=== PATIENT | male | born 1960 | race Caucasian/White ===

== ENCOUNTER → 2017-04-20 06:46 | Outpatient (CLI) | payer OTHER, SELFPAY ==
[2017-04-07 09:48] VITALS: BP 117/75; BMI 32.2
--- NOTE | 2017-04-20 06:48 | CT_ITS ---
STUDY: CT MAXILLOFACIAL SINUSES REASON FOR EXAM: Male, 56 years old. Chronic sinusitis. Deviated nasal septum. RADIATION DOSAGE (If Supplied By Facility): CTDIvol = ( 33.06 ) mGy, DLP = ( 825.58 ) mGycm TECHNIQUE: The patient was scanned in a multi detector CT scanner. High resolution axial imaging was performed without the administration of intravenous contrast material. Sagittal and coronal images were reconstructed. Individualized dose optimization techniques were used for this CT. COMPARISON: Comparison is made with prior study dated March 23, 2014. FINDINGS: FRONTAL SINUSES: Normal aeration, without mucosal inflammatory disease. ETHMOIDAL SINUSES: Partial opacification of the ethmoid sinuses bilaterally. MAXILLARY SINUSES: Partial opacification of the right maxillary sinus. Focal nodular mucosal thickening of the left maxillary sinus. SPHENOIDAL SINUSES: Normal aeration, without mucosal inflammatory disease. There is obstruction of the ostiomeatal complexes bilaterally due to mucosal hypertrophy. Normal bilateral middle turbinates. Normal bilateral inferior turbinates. There is a right sided nasal septal deviation with a right sided nasal septal spur. There is patency of the bilateral nasal airways. The visualized osseous structures are normal. The visualized bilateral orbital contents are normal. CT/Sinus/Facial Bone IMPRESSION: Sinusitis involving the maxillary sinuses and ethmoid sinuses bilaterally as described. Nasal septal deviation towards the right side of the midline. Electronically Signed: Sachin Mello MD at 12:03 EST Tel [phone], Service support ,
== END ==
PROVIDERS: Family Provider Student in an Organized Health Care Education/Training Program; PCP Student in an Organized Health Care Education/Training Program; Visit Provider Otolaryngology
DX: J32.0 Chronic maxillary sinusitis (principal)
CPT/HCPCS: 70486

== ENCOUNTER 2017-05-13 06:40 | Day surgery (SDC) | payer OTHER, SELFPAY ==
[2017-05-13] VITALS (8 sets, daily range): BP systolic 117–132; BP diastolic 73–87; PULSE 60–74; RESP 16–18; TEMP 36.1–37.4; O2SAT 92–96; BMI 33.0
--- NOTE | 2017-05-13 | SEP_PTH ---
PATIENT: ANJELICA PEREZ LOC: [facility] U#:[id number] AGE/SX: 56/M ROOM: RE05/13/[address]: Dr. Christian Powers MD : 1960 BED: DIS: 05/13/2017 SPEC #: [id number] RECD: 05/13/17 14:33 STATUS: COLLIN JEROME #: [id number] ANDREAS: 05/13/17 00:[address]: Christian Powers DEPT: SURGICAL PATHOLOGY RECD BY: John Shelby ENTERED: 05/13/17 14:34 SP TYPE: SEPTUM OTHR DR: Dr. Jovanny Abernathy, Tissues: A - Nasal septum, NOS B - Ethmoid sinus, NOS C - Ethmoid sinus, NOS Procedures: Decalcification bone/plaque Surgery Specimen Level III Surgery Specimen Level IV HEADER OPERATION: Septoplasty, ethmoidectomy, max antrostomy, PRE-OP DIAGNOSIS: Septal deviation with right-sided spur posteriorly; obstruction of maxillary sinus ostia and diffuse ethmoid disease TISSUE SUBMITTED: A ? Nasal septum, B ? Left sinus contents, C ? Right sinus contents MICROSCOPIC DIAGNOSIS A. Nasal septum: Fragments of cartilage and bone, clinically septal deviation. B. Left sinus contents: Fragments of respiratory mucosa with mild chronic inflammation and bone. C. Right sinus contents: Fragments of respiratory mucosa with mild chronic inflammation including turbinate and bone. SJ:danis 05/18/17 MICROSCOPIC DESCRIPTION Slides are reviewed. GROSS DESCRIPTION A - Received in fixative is one container labeled with the patient's name and designated nasal septum. The specimen consists of multiple irregular fragments of pink-red bone and cartilage that in aggregate measure 5 x 3 x 0.2 cm. Supply Chain Coordinator portions are submitted in one cassette after decalcification. B - Received in fixative is one container labeled with the patient's name and designated left sinus contents. The specimen consists of multiple irregular fragments of red-cohn soft tissue that in aggregate measure 3 x 2.5 x 0.2 cm. The specimen is totally submitted in one cassette. C - Received in fixative is one container labeled with the patient's name and designated right sinus contents. The specimen consists of two fragments of pink-cohn glistening mucosa with attached bone resembling turbinates and multiple minute fragments of cohn tissue that in aggregate measure 3 x 2 x 0.1 cm resembling sinus contents. Supply Chain Coordinator portions are submitted in one cassette after decalcification. / AM:danis 05/13/17 TC:3 CPT: 33198 x2, 48036 x2, 25771
--- NOTE | 2017-05-13 07:02 | EKG12_ITS ---
Test Reason : PREOP Blood Pressure : / mmHG Vent. Rate : 064 BPM Atrial Rate : 064 BPM P-R Int : 144 ms QRS Dur : 080 ms QT Int : 388 ms P-R-T Axes : 004 006 008 degrees QTc Int : 400 ms Normal sinus rhythm Normal ECG When compared with ECG of 25-OCT-2013 08:25, No significant change was found Confirmed by ROME CHACON, RODERICK ([id number]), department editor EUNICE VIDALES ([id number]) on 05/16/2017 3:44:26 PM Referred By: Christian Powers Confirmed By:RODERICK PETER MD
[2017-05-13 07:43] LABS: Anion Gap 7 (5-15); BUN 16 mg/dL (7-18); BUN/Creat Ratio 13.7 RATIO (10-20); Calcium,Total 8.4 mg/dL (8.5-10.1); Chloride 105 mmol/L (98-107); Creatinine, Serum 1.17 mg/dL (0.70-1.30); EST Glomerular Filtration Rate 69 mL/min (>60); Est Glom Filt Rate - Afr Amer 83 mL/min (>60); Glucose 101 mg/dL (74-106); Potassium 4.2 mmol/L (3.5-5.1); Sodium Level 140 mmol/L (136-145)
[2017-05-13] MEDS: Oxymetazoline 0.05% 1 SPRAY SPRAY.BTL 15 SPRAY (08:45)
[2017-05-13] MEDS: Lidocaine 4% 50 ML Bottle (08:45)
[2017-05-13] MEDS: Bacitracin 500 UNITS/GM PACKET (10:29)
--- NOTE | 2017-05-13 10:45 | PCM.DC ---
- Discharge Diagnoses Current Active Problems: chronic sinusitis, deviated nasal septum You will use the following diet at home:: Regular Discharge Activity: Return to Normal Activity, May not drive while taking narcotic pain medications. Call your doctor if your incision/area has: Continuous Slow Oozing, Sudden Increased Bleeding Call your doctor if you observe: Fever of 101 or Higher Allergies/Adverse Reactions: Allergies morphine Adverse Reaction (Verified 04/29/17 13:56) Other Medications to take at Discharge albuterol sulfate HFA 90 mcg/actuation aerosol inhaler 2 puff INHALATION PRN PRN g 04/01/17 fluticasone 100 mcg-vilanterol 25 mcg/dose powder for inhalation 1 inh INHALATION DAILY #60 ea 05/05/17 Primary Care Physician: Jovanny Abernathy DO [Primary Care Provider] - Please Follow Up With: Christian Powers MD When: 5 days
--- NOTE | 2017-05-13 10:50 | PCM.OPRPT ---
Problem List (1) Chronic ethmoidal sinusitis Status: Chronic (2) Chronic sinusitis of both maxillary sinuses Status: Chronic (3) Chronic sphenoidal sinusitis Status: Chronic (4) Nasal septal deviation Status: Chronic Report of Operation Date of Procedure: 05/13/17 Pre-Operative Diagnosis: Nasal septal deviation, chronic sinusitis Post-Operative Diagnosis: same Surgery/Procedure Performed:: Septoplasty, bilateral endoscopic maxillary antrostomies, total ethmoidectomies, sphenoidotomies Description of Surgical Findings:: Mayank is a 56-year-old male who presents for evaluation of chronic nasal obstruction and expectoration of large mucous globs. Examination showed significant deviation of nasal septum and CT scan confirmed a suspected chronic sinusitis. The above procedure was offered in hopes of alleviation of these complaints and he is eager to proceed. The risks, alternatives, potential benefits, and complications were discussed at length and any questions answered to the patient and/or caregiver's satisfaction. Witnessed informed consent was obtained in the office, and the patient and/or caregiver was agreeable to proceed. Procedure went as follows: The patient was identified in the preoperative holding and brought to the operating room was placed under general anesthesia and intubated. When appropriate anesthesia obtained the navigational headgear was placed in accordance with the manufactures directions prior to proceeding. Pledgets soaked in a 50-50 mixture of oxymetazoline and 4% topical lidocaine were placed decongest the nasal mucosa. The nasal septum was then injected beginning on the left side with 1% lidocaine with 100,000 epinephrine for a total of 7 cc. The pledgets were then removed and the left nasal cavity examined there is noted to be marketed nasal septal deviation to the right with a large inferior bony spur on the left. Using a 15 blade scalpel a hemitransfixion incision was then made in the left side and using the caudal elevator a subperichondrial periosteal flap and elevated. The septum was then transected at the bony cartilaginous junction and similar flap raised on the contralateral side. Using a Karen forceps the septum was then sharply transected superiorly and the deviated portions removed with a Sabine forceps. Inferiorly the septal spur was removed with a chisel allowing for midline placement of the nasal septum. The hemitransfixion incision was then closed with interrupted 4-0 chromic gut suture followed by a 4 oh plain quilting suture to reapproximate the mucosal flaps. This completed the septoplasty portion of the procedure. Beginning on the left side using a 0? endoscope the nasal cavity examined. There is noted to be significant obstruction of the middle turbinate which was enlarged and involved with the randi bullosa. This was then injected with 1% lidocaine with 100,000 epinephrine for 2 cc total similar injection was then carried on the contralateral side. Again on the left side the randi bullosa was then entered and the medial aspect removed. This allowed examination of the maxillary sinus ostia which is then probed with a double ball seeker. The uncinate process process was then outfractured with a J curette and transected with a backbiting forceps. This was then removed with the microdebrider creating a wide maxillary antrostomy. The ethmoid bulla was then entered and total ethmoidectomy was then carried out. There is noted to be polypoid obstruction of the sphenoid sinus ostia and given this this was then entered and widened to prevent postoperative obstruction of the sphenoid sinus. Pledgets were then placed soaked in oxymetazoline for hemostasis and attention turned to the contralateral side. Similar procedure and findings were then carried out again with a maxillary antrostomy total ethmoidectomies and sphenoidotomy. The right maxillary sinus was completely filled with thick inspissated mucus which was suctioned clear with an olive-tipped suction. The middle turbinates were noted to be significantly flail and thinned with scar obstructing the frontonasal recesses. Given this these were then removed which alleviated the obstruction at this site. FloSeal hemostatic agent was then applied for hemostasis after irrigating the nasal passages with saline solution. Jasso splints were placed after coating with bacitracin ointment and secured at the columella with a single 3-0 Prolene suture. G-tube was placed to decompress the stomach and the patient returned to anesthesia where he was revived and extubated without complication having tolerated the procedure well. Type of Anesthesia:: General Anesthesiologist: Lars Starkey Specimen's removed: septal and sinus contents Drains: none Estimated Blood Loss (mL): 150 mL Fluids Replaced: 1200 mL Grafts/Implants Used: Jasso splints - Complications none - Admit VTE Documentation VTE Present on Admission: No VTE Mechan Device Prophylaxis: SCD's VTE Pharm Prophylaxis ordered?: No
[2017-05-13] MEDS: Ibuprofen 400 MG Tablet PO (12:39)
== END 2017-05-13 14:20 | disposition home or self-care (01) ==
LOC: SDC 06:41 → AC 06:44
PROVIDERS: Family Provider Student in an Organized Health Care Education/Training Program; PCP Student in an Organized Health Care Education/Training Program; Visit Provider Otolaryngology
PROC: (CPT 30520; principal; 2017-05-13 08:05)
DX: J34.2 Deviated nasal septum (principal); J32.2 Chronic ethmoidal sinusitis; J32.0 Chronic maxillary sinusitis; J32.3 Chronic sphenoidal sinusitis; J45.909 Unspecified asthma, uncomplicated
CPT/HCPCS: 30520; 31256; 31287; 36415; 80048; 88304; 88305; 88311; 93005; J3010; J7120; J2405; J3490

== ENCOUNTER → 2017-11-23 12:24 | Outpatient (CLI) | payer OTHER, SELFPAY ==
[2017-11-26 12:07] LABS: Alternaria tenuis <0.10 kU/L (Class 0); Ash, White <0.10 kU/L (Class 0); Aspergillus fumigatus <0.10 kU/L (Class 0); Bermuda Grass <0.10 kU/L (Class 0); Birch <0.10 kU/L (Class 0); Black Walnut <0.10 kU/L (Class 0); Cat Hair / Dander,Stand <0.10 kU/L (Class 0); Cedar, Mountain <0.10 kU/L (Class 0); Cladosporium herbarum <0.10 kU/L (Class 0); Cockroach, American <0.10 kU/L (Class 0); Cottonwood <0.10 kU/L (Class 0); D farinae Mite 0.15 kU/L (Class 0/I); D pteronyssinus 0.14 kU/L (Class 0/I); Dog Epithelia <0.10 kU/L (Class 0); Elm, American White <0.10 kU/L (Class 0); Immunoglobulin A 126 mg/dL (90-386); Immunoglobulin E 4 IU/mL (0-100); Immunoglobulin G 1100 mg/dL (700-1600); Immunoglobulin M 60 mg/dL (20-172); Maple/Box Elder <0.10 kU/L (Class 0); Mulberry, White <0.10 kU/L (Class 0); Oak, White <0.10 kU/L (Class 0); Pecan <0.10 kU/L (Class 0); Penicillium Notatum <0.10 kU/L (Class 0); Pigweed, Rough <0.10 kU/L (Class 0); Ragweed, Short/Common <0.10 kU/L (Class 0); Russian Thistle <0.10 kU/L (Class 0); Sheep Sorrel <0.10 kU/L (Class 0); Sycamore, American <0.10 kU/L (Class 0); Timothy Grass <0.10 kU/L (Class 0)
[2017-11-28 10:37] LABS: Immunoglobulin E 5 IU/mL (0-100)
[2017-11-28 10:38] LABS: Mouse Urine <0.10 kU/L (Class 0)
== END ==
PROVIDERS: Family Provider Student in an Organized Health Care Education/Training Program; PCP Student in an Organized Health Care Education/Training Program; Visit Provider Allergy & Immunology
DX: J30.89 Other allergic rhinitis (principal); J32.4 Chronic pansinusitis
CPT/HCPCS: 36415; 82784; 82785; 86003

== ENCOUNTER → 2018-01-10 10:32 | Outpatient (CLI) | payer OTHER, SELFPAY ==
--- NOTE | 2018-01-10 10:39 | STEWCON_ITS ---
Reason For Study: Dyspnea on Exertion Stress Results Protocol: Carlos Protocol Maximum Predicted HR: 164 bpm Target HR: 139 bpm % Maximum Predicted HR: 92 % Heart Stage Duration Rate BP Comment (mm:ss) (bpm) No Chest Pain; No Dyspnea; Diluted Definity 5 ML Baseline 74 122/84Given Carlos Protocol Stage I 3:00 125 136/80No Chest Pain; Mild Dyspnea Carlos Protocol Stage II 3:00 151 150/78No Chest Pain; Moderate to Severe Dyspnea Recovery 92 126/78No Chest Pain; No Dyspnea Stress Duration: 6:00 mm:ss Maximum Stress HR: 151 bpm METS: 7 Baseline Echocardiogram Findings The estimated ejection fraction is 65 %. Stress Echo Wall motion Data Resting WM Intermediate WM Stress WM Resting Wall Motion Wall Motion Stress No regional wall motion No regional wall motion abnormalities noted. abnormalities noted. EKG Data Normal intervals are noted. The patient exercised according to the regular Carlos protocol for a total duration of 7:00. The maximum heart rate attained was 151 beats per minute. This was 92% of maximum predicted heart rate. The patient exercised into stage 3 of the Carlos protocol. During stress, there were no ST or T wave changes noted to suggest ischemia. No clinical angina was noted. No arrhythmias noted. Interpretation Summary The study was technically difficult. Contrast injection was performed. The estimated ejection fraction is 65 %. Normal, adequate, treadmill echocardiogram. Negative for ischemia by EKG and echocardiographic anterior. No anginal symptoms noted. No arrhythmias noted. Appropriate blood pressure response to exercise. Below average exercise capacity for age. Test terminated due to dyspnea. Decreased sensitivity due to poor echo windows requiring Definity enhancing agent. Severe dyspnea may be an anginal equivalent. Recommend clinical correlation. Final LVEF of 65%. No complications. Ordering Physician: Katy Barker M.D. Referring Physician: Major Lazo M.D. Performed By: Yaneth Farrell RDCS
== END ==
PROVIDERS: Family Provider Student in an Organized Health Care Education/Training Program; PCP Student in an Organized Health Care Education/Training Program; Referring Provider Allergy & Immunology; Visit Provider Allergy & Immunology
DX: R06.09 Other forms of dyspnea (principal)
CPT/HCPCS: 93017; 93350; Q9957; A4216; C8928

== ENCOUNTER → 2018-11-16 07:15 | Outpatient (CLI) | payer OTHER, SELFPAY ==
[2018-05-16 07:44] VITALS: BMI 33.0
[2018-11-16 07:43] LABS: Absolute Lymphocyte Count 1.49 X10^3/uL (0.83-4.51); Absolute Neutrophil Count 4.1 X10^3/uL (2.0-7.7); Basophil# 0.06 X10^3/uL; Basophil% 0.9 % (0-1); Eosinophil# 0.16 X10^3/uL; Eosinophils% 2.5 % (0-5); Hematocrit 45.8 % (40-54); Hemoglobin 14.9 g/dL (13.0-16.5); Lymphocyte # 1.49 X10^3/ul (4.0); Lymphocyte % 23.4 % (19-41); Mean Corp Hgb Conc 32.5 g/dL (32-36); Mean Corpuscular Volume 92.3 fL (80-94); Mean Platelet Vol. 9.3 fl (6.2-12.0); Monocyte# 0.57 X10^3/uL; Monocyte% 8.9 % (0-10); NRBC Flagged by Analyzer 0 % (0-5); Neutrophil # 4.06 X10^3/uL (2.7-7.7); Neutrophil % 63.7 % (47-70); Platelet Count 246 K/mm3 (150-450); RBC Distribution Width CV 12.6 % (11.6-14.6); RBC Distribution Width SD 42.8 fl (35.1-43.9); Red Blood Count 4.96 M/mm3 (4.6-6.2); White Blood Count 6.4 K/mm3 (4.4-11.0)
[2018-11-16 08:12] LABS: ALB/GLOB Ratio 1.1 RATIO (0.9-2.4); AST(SGOT) 28 U/L (15-37); Alanine Aminotransfer ALT/SGPT 33 U/L (16-61); Albumin, Serum 3.7 g/dL (3.2-5.0); Alkaline Phosphatase 47 U/L (45-117); Anion Gap 5 (5-15); BUN 19 mg/dL (7-18); BUN/Creat Ratio 16.2 RATIO (10-20); Calcium,Total 8.3 mg/dL (8.5-10.1); Chloride 109 mmol/L (98-107); Cholesterol 144 mg/dL (200); Creatinine, Serum 1.17 mg/dL (0.70-1.30); EST Glomerular Filtration Rate 68 mL/min (>60); Est Glom Filt Rate - Afr Amer 83 mL/min (>60); Globulin 3.3 g/dL (2.2-4.2); Glucose 98 mg/dL (74-106); High Density Lipoprotein 44 mg/dL; Potassium 4.3 mmol/L (3.5-5.1); Sodium Level 143 mmol/L (136-145); Thyroid Stim Hormone (TSH) 2.11 uIU/mL (0.358-3.74); Triglycerides 112 mg/dL; Very Low Density Lipoprotein 22 mg/dL (5-40)
[2018-11-16 17:29] LABS: PSA,Total - Annual Screen 1.04 ng/mL (0.00-4.00)
== END ==
PROVIDERS: Family Provider Nurse Practitioner Primary Care; PCP Nurse Practitioner Primary Care; Referring Provider Nurse Practitioner Primary Care; Visit Provider Nurse Practitioner Primary Care
DX: Z12.5 Encounter for screening for malignant neoplasm of prostate (principal); R53.83 Other fatigue; Z13.220 Encounter for screening for lipoid disorders
CPT/HCPCS: 36415; 80053; 80061; 84153; 84443; 85025; G0103

== ENCOUNTER → 2019-08-08 | Outpatient (CLI) | payer OTHER, SELFPAY ==
[2019-08-08 16:18] VITALS: BMI 33.0
== END | disposition home or self-care (01) ==
LOC: LABSPEC 17:07
PROVIDERS: PCP Student in an Organized Health Care Education/Training Program; Referring Provider Surgery; Visit Provider Surgery
DX: R22.31 Localized swelling, mass and lump, right upper limb (principal)

== ENCOUNTER → 2019-08-09 | Outpatient (CLI) | payer OTHER, SELFPAY ==
--- NOTE | 2019-08-08 | LES_PTH ---
PATIENT: ANJELICA PEREZ LOC: [facility] U#:[id number] AGE/SX: 58/M ROOM: RE08/09/[address]: Dr. Luke Mahoney MD : 1960 BED: DIS: 08/09/2019 SPEC #: [id number] RECD: 08/08/19 16:46 STATUS: COLLIN JEROME #: [id number] ANDREAS: 08/08/19 00:[address]: Luke Mahoney DEPT: SURGICAL PATHOLOGY RECD BY: John Shelby ENTERED: 08/09/19 09:38 SP TYPE: Lesion OTHR DR: Dr. Jovanny Abernathy, DO Tissues: Skin of arm Procedures: Surgery Specimen Level III HEADER OPERATION: Excision of subcutaneous mass of right forearm PRE-OP DIAGNOSIS: Subcutaneous mass of right forearm TISSUE SUBMITTED: Subcutaneous mass of right forearm MICROSCOPIC DIAGNOSIS Soft tissue mass of right forearm, excision: Mature adipose tissue consistent with angiolipoma. AM:danis 08/10/19 MICROSCOPIC DESCRIPTION Slides are reviewed. GROSS DESCRIPTION Received in fixative is one container labeled with the patient's name and designated right forearm mass. The specimen consists of a piece of yellow adipose tissue measuring 3.5 x 2.5 x 0.7 cm. Sections reveal yellow adipose cut surfaces without area of hemorrhage, necrosis or cystic degeneration. Products Mechanical Design Engineer sections are submitted in two cassettes. / SJ:danis 08/09/19 TC:1 CPT: 91945
[2019-08-08 16:18] VITALS: BMI 33.0
== END | disposition home or self-care (01) ==
PROVIDERS: PCP Student in an Organized Health Care Education/Training Program; Visit Provider Surgery
DX: R22.31 Localized swelling, mass and lump, right upper limb (principal)
CPT/HCPCS: 88304; 88305

== ENCOUNTER 2020-02-19 16:28 | Observation (INO) | payer OTHER, SELFPAY ==
[2019-08-08 16:18] VITALS: BMI 33.0
[2020-02-19 16:29] VITALS: BP 125/84; PULSE 75; RESP 18; TEMP 36.6; O2SAT 98; BMI 30.9
--- NOTE | 2020-02-19 16:48 | NURSING ---
LEFT MESSAGE ON DR CANALES'S PHONE. BOOKSTORE MANAGER FOR DR ROBERT
--- NOTE | 2020-02-19 17:06 | ED.VISSUMM ---
- ER Visit Summary Date of Service: 02/19/20 Chief Complaint: Left leg and foot swelling History of Present Illness: The patient is a 59 M comes in today with left leg and foot swelling. He has some mild symptoms on the right. He had shoulder surgery on January 07. 2 weeks later he developed coronavirus. He then had superimposed pneumonia after that. He currently is denying any chest pain but feels very mildly short of breath. He has a history of superficial thrombophlebitis. He had an outpatient DVT ultrasound today which shows right and left posterior tibial and gastrocnemius veins. He was sent here for further evaluation. Physical Examination: Vital signs reviewed. HEENT exam unremarkable. Heart is regular rate and rhythm without murmurs. Lungs are clear to auscultation. Abdomen is soft and nontender. Extremities reveal plus edema to the bilateral lower extremities, slightly worse on the left down into the foot. Skin exam normal. Neurologic exam normal. Test Results: CBC and basic are normal. CT of the chest shows bilateral pulmonary emboli in all the lobes. Radiologist did remark that certain emboli are encroaching into the main pulmonary artery Emergency Department Course and Treatment: Due to the clot burden the patient will given a dose of subcutaneous Lovenox. Patient will be admitted to the hospital for further evaluation. Treatment Plan: [] Disposition: Admit Impression: Bilateral pulmonary emboli, DVT This note was generated with JumpPost dictation software. It may contain incorrect words, spelling, and punctuation that were not noted in review of the chart prior to signing ED Disposition - Plan for ED Patient: Referrals: Jovanny Abernathy DO [Primary Care Provider] -
[2020-02-19 17:19] LABS: Absolute Lymphocyte Count 1.93 X10^3/uL (0.83-4.51); Absolute Neutrophil Count 6.1 X10^3/uL (2.0-7.7); Basophil# 0.05 X10^3/uL; Basophil% 0.5 % (0-1); Eosinophil# 0.21 X10^3/uL; Eosinophils% 2.3 % (0-5); Hematocrit 44.1 % (40-54); Hemoglobin 14.2 g/dL (13.0-16.5); Lymphocyte # 1.93 X10^3/ul (4.0); Lymphocyte % 20.8 % (19-41); Mean Corp Hgb Conc 32.2 g/dL (32-36); Mean Corpuscular Volume 90.2 fL (80-94); Mean Platelet Vol. 9.7 fl (6.2-12.0); Monocyte# 0.89 X10^3/uL; Monocyte% 9.6 % (0-10); NRBC Flagged by Analyzer 0 % (0-5); Neutrophil # 6.12 X10^3/uL (2.7-7.7); Neutrophil % 65.9 % (47-70); Platelet Count 328 K/mm3 (150-450); RBC Distribution Width CV 12.6 % (11.6-14.6); RBC Distribution Width SD 41.9 fl (35.1-43.9); Red Blood Count 4.89 M/mm3 (4.6-6.2); White Blood Count 9.3 K/mm3 (4.4-11.0)
[2020-02-19 17:30] LABS: Anion Gap 4 (5-15); BUN 17 mg/dL (7-18); BUN/Creat Ratio 16.3 RATIO (10-20); Chloride 107 mmol/L (98-107); Creatinine, Serum 1.04 mg/dL (0.70-1.30); EST Glomerular Filtration Rate 78 mL/min (>60); Est Glom Filt Rate - Afr Amer 94 mL/min (>60); Glucose 96 mg/dL (74-106); Potassium 4.4 mmol/L (3.5-5.1); Sodium Level 141 mmol/L (136-145)
--- NOTE | 2020-02-19 17:40 | CT_ITS ---
STUDY: CTA CHEST REASON FOR EXAM: Male, 59 years old. SOB. +COVID AND PNEUMONIA RADIATION DOSAGE (If Supplied By Facility): CTDIvol = ( 14.45 ) mGy, DLP = ( 494.72 ) mGycm TECHNIQUE: The examination was performed with the intravenous administration of IV 100mL Isovue-370. Post-processing of the angiographic images was performed, with multiplanar reformation and 3D reconstruction. Individualized dose optimization techniques were used for this CT. COMPARISON: CT chest dated 12/22/16. FINDINGS: There are bilateral segmental and subsegmental pulmonary emboli in all lobes of both lungs which is more pronounced in the lower lobes bilaterally. The pulmonary artery is normal in caliber. There is no evidence of right heart strain. There is no evidence of thoracic aortic aneurysm or dissection. The heart and pericardium are within normal limits. There is no thoracic lymphadenopathy. There is atelectasis noted in the lung bases, left greater than right. There are no pulmonary infiltrates or pleural effusions. The central airways are patent. There is no pneumothorax. Images through the upper abdomen demonstrate no significant abnormality. There are no destructive osseous lesions. CT/CTA Chest W/WO Contrast IMPRESSION: Bilateral segmental and subsegmental pulmonary emboli throughout all lobes of both lungs. This is more pronounced in the lower lobes bilaterally. No thoracic aortic aneurysm or dissection. Bibasilar atelectasis, left greater than right. No pulmonary infiltrates or pleural effusions. N.B. : The above information has been verbally conveyed by Kaz Peirre to Kamran Gauthier MD, on 02/19/2020 18:02:59 (ET). Electronically Signed: Kaz Pierre, at 18:05 EST Tel , Service support ,
--- NOTE | 2020-02-19 18:22 | NURSING ---
PCU WHITE BILATERAL PULMONARY EMBOLI
[2020-02-19 18:30] VITALS: BP 122/81; PULSE 67; RESP 16; TEMP 36.9; O2SAT 98
[2020-02-19] MEDS: Enoxaparin 100 MG/ML Syringe SC (18:32)
--- NOTE | 2020-02-19 18:52 | HP.PCM_ITS ---
Problem List (1) DVT (deep venous thrombosis) Status: Acute (2) Pulmonary emboli Status: Acute History of Present Illness Date of Admission: 02/19/20 Chief Complaint: left ankle swelling The patient is a 59 year old M with pmhx of recent covid 19 who presented to the ER with LLE ankle swelling. The patient underwent a shoulder surgery january 07 and had covid following this. He has since recovered. About 4 days ago he developed left ankle swelling. It has progressively worsened. He has some associated pain. He has mild right calf pain. He denies chest pain, tightness, heaviness, SOB, racing, lightheadedness, dizziness, nausea, fever, chills. He has an occasional productive cough. He states he takes no meds and is otherwise healthy. [] Past Medical History Past Medical History (Chronic Problems): Chronic Problems (Last Reviewed 08/08/19 @ 16:25 by Georgie Delarosa) Environmental allergies (Chronic) Nasal septal deviation (Chronic) Chronic ethmoidal sinusitis (Chronic) Chronic sphenoidal sinusitis (Chronic) Chronic sinusitis of both maxillary sinuses (Chronic) Post-nasal drip (Chronic) History of asbestos exposure (Chronic) Shortness of breath (Chronic) Asthma, moderate persistent (Chronic) Medical History: Medical History (Last Reviewed 08/08/19 @ 16:25 by Georgie Delarosa) Subcutaneous mass (Acute) R22.9 History of asbestos exposure (Chronic) Z77.090 Shortness of breath (Chronic) R06.02 Asthma, moderate persistent (Chronic) J45.40 Allergies morphine Adverse Reaction (Verified 02/19/20 16:32) migraine Home Medications: Ambulatory Orders Medication Instructions Recorded Acetaminophen [Tylenol Extra 500 mg PO QHS 02/19/20 Strength] Surgical History: Surgical History (Last Reviewed 08/08/19 @ 16:25 by Georgie Delarosa) Sinus reconstruction Dr. Powers did 3 or 4 different procedures 05/2017 Lives: With Family Smoking Status: Never smoker Tobacco Use: Non-smoker Alcohol: None Drugs: None - *Family History Maternal Family History: Family History (Last Reviewed 02/19/20 @ 18:57 by Rhys NICOLE, PA) Father Diabetes Cancer Sister Diabetes Sister Diabetes Review of Systems Constitutional: Denies: Chills, Fever, Weight Change HEENT: Denies: Head Aches, Sinus Congestion, Sinus Drainage Cardiovascular: Denies: Chest Pain, Palpitations Respiratory: Reports: Cough, Sputum production. Denies: Shortness of Breath, Shortness of breath at rest Gastrointestinal: Denies: Abdominal Pain, Diarrhea, Nausea, Vomiting Genitourinary: Denies: Dysuria, Hesitancy, Urgency Musculoskeletal: Reports: Joint Pain - ankle pain and swelling (L), calf pain (R). Denies: Joint Tenderness, Muscle pain Skin: Denies: Lesions, Rash, Wounds Neurological: Denies: Numbness, Tingling, Focal weakness Psychiatric: Denies: Anxiety, Depression, Homicidal Ideations, Suicidal Ideations Hematologic/ Lymphatic: Denies: Easy Bruising, Easy Bleeding VTE Information - Inpt Only VTE Present on Admission: Yes VTE Mechan Device Prophylaxis: None VTE Pharm Prophylaxis ordered?: Yes - Physical Exam Vitals/I&O's: Vital Signs Temp Pulse Resp BP Pulse Ox 98.4 F 67 16 122/81 H 98 02/19/20 18:30 02/19/20 18:30 02/19/20 18:30 02/19/20 18:30 02/19/20 18:30 Oxygen Delivery Method Room Air Weight: 234 lb Body Mass Index (BMI) 30.9 General: Alert, Oriented x3, Cooperative HEENT: Atraumatic, PERRLA, EOMI, Normocephalic Neck: Supple, No JVD, Negative Carotid Bruits Lungs: Clear to auscultation, Normal air movement Cardiovascular: Regular rate, No murmurs Abdomen: Bowel Sounds Present, Soft, Non Tender Extremities: No edema, Capillary Refill Less than 3 Seconds Skin: No rashes, No breakdown Musculoskeletal: No Tenderness to Palpation of Joints or Extremities, - - left ankle swelling and tenderness. right calf tenderness Neurological: Cranial nerves II-XII grossly intact Psych/Mental Status: Normal Affect, Appropriate Laboratory Results 02/19/20 17:13: WBC 9.3, RBC 4.89, Hgb 14.2, Hct 44.1, MCV 90.2, MCH 29.0, MCHC 32.2, RDW Std Deviation 41.9, RDW Coeff of Maricarmen 12.6, Plt Count 328, MPV 9.7, Immature Gran % (Auto) 0.900, Neut % (Auto) 65.9, Lymph % (Auto) 20.8, Dane % (Auto) 9.6, Eos % (Auto) 2.3, Baso % (Auto) 0.5, Absolute Neuts (auto) 6.1, Absolute Lymphs (auto) 1.93, Nucleated RBC % 0 02/19/20 17:13: Sodium 141, Potassium 4.4, Chloride 107, Carbon Dioxide 30.0, Anion Gap 4 L, BUN 17, Creatinine 1.04, Estim Creat Clear Calc 87.50, Est GFR (MDRD) Af Amer 94, Est GFR (MDRD) Non-Af 78, BUN/Creatinine Ratio 16.3, Glucose 96, Calcium 9.0 Assessment/Plan All Active Problems (Last Reviewed 08/08/19 @ 16:25 by Georgie Delarosa) DVT (deep venous thrombosis) (Acute) Pulmonary emboli (Acute) Subcutaneous mass (Acute) 1. DVT, PE - post covid 19. No CP, SOB, tachycardia, hypoxia. Pt treated with lovenox. -CTA chest with bilateral segmental and subsegmental PE all lobes both lungs more pronounced in the lower lobes bilaterally. -Had outpatient venous duplex showing right and left posterior tibial and gastroc DVTs 2. Recent covid 19 - has residual cough. he is out of quarantine. 3. Recent shoulder surgery - follows with [facility]. Has sling but states tomorrow was supposed to be last day in the sling. This patient was seen by Rhys Bermudez PA-C under the supervision of Dr. Michele.
--- NOTE | 2020-02-19 19:23 | PCS.PANDOC ---
PANDEMIC DOCUMENTATION INITIATED: Date: Time:
--- NOTE | 2020-02-19 19:23 | PCS.PANDOC ---
PANDEMIC DOCUMENTATION INITIATED: Date: 02/19/20 Time: 1922
[2020-02-19 19:30] VITALS: BP 131/80; PULSE 69; RESP 16; TEMP 36.6; O2SAT 94
[2020-02-19 19:37] VITALS: BMI 30.8; BMI 30.9
--- NOTE | 2020-02-19 19:50 | EKG12_ITS ---
Test Reason : CP ADMISSION Blood Pressure : / mmHG Vent. Rate : 069 BPM Atrial Rate : 069 BPM P-R Int : 146 ms QRS Dur : 078 ms QT Int : 406 ms P-R-T Axes : 024 016 017 degrees QTc Int : 435 ms Normal sinus rhythm Normal ECG Confirmed by ASHLEY CHACON, ELI ([id number]), manager editorial CORINA MOLINA ([id number]) on 02/21/2020 8:27:17 AM Referred By: Confirmed By:ELI RAMIREZ MD
[2020-02-19 19:58] LABS: BNP,B-Type NATRIURETIC PEPTIDE 27.4 pg/mL (0-100)
[2020-02-19 20:24] VITALS: PULSE 82
[2020-02-19] MEDS: Famotidine 20 MG Tablet PO (21:25)
[2020-02-19 21:26] VITALS: BP 136/79; PULSE 72; RESP 18; TEMP 36.6; O2SAT 95
[2020-02-20 02:59] VITALS: PULSE 67
[2020-02-20 03:26] VITALS: BP 121/75; PULSE 67; RESP 18; TEMP 36.8; O2SAT 94
[2020-02-20 05:39] LABS: Absolute Lymphocyte Count 1.81 X10^3/uL (0.83-4.51); Absolute Neutrophil Count 4.7 X10^3/uL (2.0-7.7); Basophil# 0.03 X10^3/uL; Basophil% 0.4 % (0-1); Eosinophils% 3.8 % (0-5); Hematocrit 40.4 % (40-54); Hemoglobin 12.9 g/dL (13.0-16.5); Lymphocyte # 1.81 X10^3/ul (4.0); Lymphocyte % 23.2 % (19-41); Mean Corp Hgb Conc 31.9 g/dL (32-36); Mean Corpuscular Hgb 28.7 pg (27.0-32.0); Mean Corpuscular Volume 89.8 fL (80-94); Mean Platelet Vol. 9.4 fl (6.2-12.0); Monocyte# 0.92 X10^3/uL; Monocyte% 11.8 % (0-10); NRBC Flagged by Analyzer 0 % (0-5); Neutrophil # 4.67 X10^3/uL (2.7-7.7); Neutrophil % 59.9 % (47-70); Platelet Count 288 K/mm3 (150-450); RBC Distribution Width CV 12.7 % (11.6-14.6); RBC Distribution Width SD 42.1 fl (35.1-43.9); White Blood Count 7.8 K/mm3 (4.4-11.0)
[2020-02-20 06:08] LABS: ALB/GLOB Ratio 0.9 RATIO (0.9-2.4); AST(SGOT) 29 U/L (15-37); Alanine Aminotransfer ALT/SGPT 49 U/L (16-61); Albumin, Serum 3.3 g/dL (3.2-5.0); Alkaline Phosphatase 87 U/L (45-117); Anion Gap 5 (5-15); BUN 11 mg/dL (7-18); BUN/Creat Ratio 10.1 RATIO (10-20); Calcium,Total 8.4 mg/dL (8.5-10.1); Chloride 106 mmol/L (98-107); Creatinine, Serum 1.09 mg/dL (0.70-1.30); EST Glomerular Filtration Rate 74 mL/min (>60); Est Glom Filt Rate - Afr Amer 89 mL/min (>60); Estimated Creatinine Clearance 83.48 ml/min; Globulin 3.7 g/dL (2.2-4.2); Glucose 122 mg/dL (74-106); Potassium 3.6 mmol/L (3.5-5.1); Sodium Level 138 mmol/L (136-145)
[2020-02-20 07:00] VITALS: PULSE 63
[2020-02-20 08:31] VITALS: O2SAT 91; O2SAT 95
--- NOTE | 2020-02-20 09:19 | CASEMGMT ---
Pt does not qualify for home oxygen at this time and will be sent home on Eliquis at discharge. [facility] to [facility] and she states they applied free 30 day card for pt and they will bring meds to room. Jonelle HESTER CM
[2020-02-20 09:25] VITALS: BP 110/72; PULSE 71; RESP 16; TEMP 36.9; O2SAT 96
[2020-02-20] MEDS: Enoxaparin 120 MG/0.8 ML Syringe 110 MG SC (09:28)
[2020-02-20] MEDS: Famotidine 20 MG Tablet PO (09:28)
--- NOTE | 2020-02-20 10:03 | DCINST_ITS ---
- Discharge Diagnoses Current Active Problems: Current Active and Chronic Problems (Last Reviewed 08/08/19 @ 16:25 by Georgie Delarosa) DVT (deep venous thrombosis) (Acute) Pulmonary emboli (Acute) You will use the following diet at home:: Cardiac Your food should be the consistency of: Regular Your liquids should be the consistency of: Regular/Thin Discharge Activity: Return to Normal Activity Allergies/Adverse Reactions: Allergies morphine Adverse Reaction (Verified 02/19/20 16:32) migraine Medications to take at Discharge Acetaminophen [Tylenol] 500 mg PO QHS 02/19/20 Apixaban [Eliquis] 5 mg PO BID #74 tab 02/20/20 The following prescriptions were given: Apixaban [Eliquis] 5 mg PO BID #74 tab Transmission Status: Received by [facility] Primary Care Physician: Jovanny Abernathy DO [Primary Care Provider] - Please follow up with your Primary Care Physician in: 1-2 weeks Test Results: Test results from this visit will be discussed in further detail at your follow- up appointment, if applicable. Please Follow Up With: Orthopedics - Surgery follow up When: Today Proposed Discharge Date: 02/20/20
--- NOTE | 2020-02-20 11:42 | PHA.DC.MR ---
Pharmacy Service has performed discharge medication reconciliation for this patient. The patient's discharge medication list was reviewed for discrepancies and discrepancies were resolved. Home Medications Acetaminophen [Tylenol] 500 mg PO QHS 02/19/20 Apixaban [Eliquis] 5 mg PO BID #74 tab 02/20/20
--- NOTE | 2020-02-20 13:19 | PCM.DC.SUM ---
<Rhys Bermudez - Last Filed: 02/20/20 13:24> Discharge Date and Diagnosis - Problem List Patient Problems: Active and Suspected Problems (Last Reviewed 08/08/19 @ 16:25 by Georgie Delarosa) DVT (deep venous thrombosis) (Acute) Pulmonary emboli (Acute) Date of Admission: 02/19/20 Date of Discharge: 02/20/20 - Primary Discharge Diagnosis Acute Problems: Active Problems (Last Reviewed 08/08/19 @ 16:25 by Georgie Delarosa) DVT (deep venous thrombosis) (Acute) Pulmonary emboli (Acute) Recent covid19 - Secondary Discharge Diagnosis Chronic Problems: Chronic Problems (Last Reviewed 08/08/19 @ 16:25 by Georgie Delarosa) Environmental allergies (Chronic) Nasal septal deviation (Chronic) Chronic ethmoidal sinusitis (Chronic) Chronic sphenoidal sinusitis (Chronic) Chronic sinusitis of both maxillary sinuses (Chronic) Post-nasal drip (Chronic) History of asbestos exposure (Chronic) Shortness of breath (Chronic) Asthma, moderate persistent (Chronic) Hospital Course and Treatment Imaging Results: CT/CTA Chest W/WO Contrast IMPRESSION: Bilateral segmental and subsegmental pulmonary emboli throughout all lobes of both lungs. This is more pronounced in the lower lobes bilaterally. No thoracic aortic aneurysm or dissection. Bibasilar atelectasis, left greater than right. No pulmonary infiltrates or pleural effusions. Operations: None Procedures: None Summary of Care Provided: Hospital Course: The patient is a 59 year old M with pmhx of superficial venous thromboembolism, recent shoulder repair and after this had covid 19 in January, who presented to the ER with chief complaint of left ankle swelling. He had an outpatient venous ultrasound that showed bilateral DVTs. He had a CTA chest in the ER that showed extensive PEs. He was given therapeutic lovenox. He did not have tachycardia, chest pain, increased SOB, or hypoxia. He was monitored overnight. He was transitioned to eliquis the following day. He was ambulated and had no hypoxia. He likely had DVT/PE due to hypercoagulable state from covid 19, however he has a vague hx of a superficial thromboembolism. I advised him to discuss duration of therapy with his PCP. He will need follow up in 1-2 weeks. He was discharged home in stable condition. He has a follow up with his orthopedic surgeon regarding his recent shoulder repair and plans to keep this appointment. This patient was seen by Rhys Bermudez PA-C under the supervision of Dr. Huynh [] Patient Problems: Active and Suspected Problems (Last Reviewed 08/08/19 @ 16:25 by Georgie Delarosa) DVT (deep venous thrombosis) (Acute) Pulmonary emboli (Acute) - Physical Exam Vitals/I&O's: Vital Signs Temp Pulse Resp BP Pulse Ox 98.4 F 71 16 110/72 96 02/20/20 09:25 02/20/20 09:25 02/20/20 09:25 02/20/20 09:25 02/20/20 09:25 Oxygen Flow Rate (L/min) [ 0 AMBULATING on Room Air] Oxygen Flow Rate (L/min) [At 0 REST on Room Air] Oxygen Delivery Method Room Air Weight: 233 lb 14.567 oz Body Mass Index (BMI) 30.8 Intake and Output for Last 24 Hours 02/18/20 02/19/20 02/20/20 23:59 23:59 23:59 Intake Total 480 / 480 240 / 240 Balance 480 / 480 240 / 240 General: Alert, Oriented x3, Cooperative HEENT: Atraumatic, PERRLA, EOMI, Normocephalic Neck: Supple, No JVD, Negative Carotid Bruits Lungs: Clear to auscultation, Normal air movement Cardiovascular: Regular rate, No murmurs Abdomen: Bowel Sounds Present, Soft, Non Tender Extremities: No edema, Capillary Refill Less than 3 Seconds Skin: No rashes, No breakdown Musculoskeletal: No Tenderness to Palpation of Joints or Extremities Neurological: Cranial nerves II-XII grossly intact Psych/Mental Status: Normal Affect, Appropriate, Alert and oriented to time, place, person, mood and affect Laboratory Results 02/19/20 17:13: WBC 9.3, RBC 4.89, Hgb 14.2, Hct 44.1, MCV 90.2, MCH 29.0, MCHC 32.2, RDW Std Deviation 41.9, RDW Coeff of Mar[place] 12.6, Plt Count 328, MPV 9.7, Immature Gran % (Auto) 0.900, Neut % (Auto) 65.9, Lymph % (Auto) 20.8, [place] % (Auto) 9.6, Eos % (Auto) 2.3, Baso % (Auto) 0.5, Absolute Neuts (auto) 6.1, Absolute Lymphs (auto) 1.93, Nucleated RBC % 0 02/19/20 17:13: Sodium 141, Potassium 4.4, Chloride 107, Carbon Dioxide 30.0, Anion Gap 4 L, BUN 17, Creatinine 1.04, Estim Creat Clear Calc 87.50, Est GFR (MDRD) Af Amer 94, Est GFR (MDRD) Non-Af 78, BUN/Creatinine Ratio 16.3, Glucose 96, Calcium 9.0 02/19/20 17:15: Troponin I < 0.015 02/19/20 17:15: B-Natriuretic Peptide 27.4 02/20/20 05:18: WBC 7.8, RBC 4.50 L, Hgb 12.9 L, Hct 40.4, MCV 89.8, MCH 28.7, MCHC 31.9 L, RDW Std Deviation 42.1, RDW Coeff of [place] 12.7, Plt Count 288, MPV 9.4, Immature Gran % (Auto) 0.900, Neut % (Auto) 59.9, Lymph % (Auto) 23.2, [place] % (Auto) 11.8 H, Eos % (Auto) 3.8, Baso % (Auto) 0.4, Absolute Neuts (auto) 4.7, Absolute Lymphs (auto) 1.81, Nucleated RBC % 0 02/20/20 05:18: Sodium 138, Potassium 3.6, Chloride 106, Carbon Dioxide 27.0, Anion Gap 5, BUN 11, Creatinine 1.09, Estim Creat Clear Calc 83.48, Est GFR (MDRD) Af Amer 89, Est GFR (MDRD) Non-Af 74, BUN/Creatinine Ratio 10.1, Glucose 122 H, Calcium 8.4 L, Total Bilirubin 1.10 H, AST 29, ALT 49, Alkaline Phosphatase 87, Total Protein 7.0, Albumin 3.3, Globulin 3.7, Albumin/Globulin Ratio 0.9 Discharge Diet: Low fat/ Low Cholesterol, 2000 mg Sodium Diet Discharge Activity: Return to Normal Activity Home Medications: Medications to take at Discharge Acetaminophen [Tylenol] 500 mg PO QHS 02/19/20 Apixaban [Eliquis] 5 mg PO BID #74 tab 02/20/20 Following Prescriptions Were Given to Patient: Apixaban [Eliquis] 5 mg PO BID #74 tab Transmission Status: Received by [facility] Primary Care Physician: Jovanny Abernathy DO [Primary Care Provider] - Please follow up with your Primary Care Physician in: 1-2 weeks Please Follow Up With: Orthopedics When: Today Please Follow Up With: Jovanny Abernathy DO Disposition: Home Minutes spent on discharge:: 35 Patient Condition:: Stable Medical Necessity - Tobacco Use Smoking Status: Never smoker Tobacco Use: Non-smoker Meaningful Use Info Meaningful Use Diagnoses (Choose all that apply): VTE - VTE Anticoag overlap given w/in hospital stay or rx'd at dc?: No Pt receive overlap for 5 days?: No Reason overlap not ordered, prescribed, or given for 5 days: Procedure Not Indicated <Ronan Huynh - Last Filed: 02/20/20 15:00> Discharge Date and Diagnosis - Primary Discharge Diagnosis Acute Problems: Active Problems (Last Reviewed 08/08/19 @ 16:25 by Georgie Delarosa) DVT (deep venous thrombosis) (Acute) Pulmonary emboli (Acute) - Secondary Discharge Diagnosis Chronic Problems: Chronic Problems (Last Reviewed 08/08/19 @ 16:25 by Georgie Delarosa) Environmental allergies (Chronic) Nasal septal deviation (Chronic) Chronic ethmoidal sinusitis (Chronic) Chronic sphenoidal sinusitis (Chronic) Chronic sinusitis of both maxillary sinuses (Chronic) Post-nasal drip (Chronic) History of asbestos exposure (Chronic) Shortness of breath (Chronic) Asthma, moderate persistent (Chronic) Hospital Course and Treatment Summary of Care Provided: This patient was seen in conjunction with Rhys Bermudez PA-C . I have independently interviewed and examined the patient and reviewed pertinent historical, laboratory, and other data. Please refer to Rhys Bermudez PA-C note for details of this patient's presentation, findings, and recommendations. I have reviewed Rhys Bermudez PA-C note and concur with documented findings. In brief, patient is a 59-year-old gentleman with recent diagnosis of COVID-19 with subsequent superficial venous thrombus but embolism who presented with left ankle swelling. Ultrasound obtained as outpatient demonstrated bilateral DVT CT demonstrated pulmonary embolism. Patient however did not have any shortness of breath no hypoxia. Admitted to a monitored bed started on systemic anticoagulation discharge the day after his admission in stable condition Hospital course: As documented above - Physical Exam Vitals/I&O's: Vital Signs Temp Pulse Resp BP Pulse Ox 98.4 F 71 16 110/72 96 02/20/20 09:25 02/20/20 09:25 02/20/20 09:25 02/20/20 09:25 02/20/20 09:25 Oxygen Flow Rate (L/min) [ 0 AMBULATING on Room Air] Oxygen Flow Rate (L/min) [At 0 REST on Room Air] Oxygen Delivery Method Room Air Weight: 106.1 kg Body Mass Index (BMI) 30.8 Intake and Output for Last 24 Hours 02/18/20 02/19/20 02/20/20 23:59 23:59 23:59 Intake Total 480 / 480 240 / 240 Balance 480 / 480 240 / 240 Laboratory Results 02/19/20 17:13: WBC 9.3, RBC 4.89, Hgb 14.2, Hct 44.1, MCV 90.2, MCH 29.0, MCHC 32.2, RDW Std Deviation 41.9, RDW Coeff of Maricarmen 12.6, Plt Count 328, MPV 9.7, Immature Gran % (Auto) 0.900, Neut % (Auto) 65.9, Lymph % (Auto) 20.8, [place] % (Auto) 9.6, Eos % (Auto) 2.3, Baso % (Auto) 0.5, Absolute Neuts (auto) 6.1, Absolute Lymphs (auto) 1.93, Nucleated RBC % 0 02/19/20 17:13: Sodium 141, Potassium 4.4, Chloride 107, Carbon Dioxide 30.0, Anion Gap 4 L, BUN 17, Creatinine 1.04, Estim Creat Clear Calc 87.50, Est GFR (MDRD) Af Amer 94, Est GFR (MDRD) Non-Af 78, BUN/Creatinine Ratio 16.3, Glucose 96, Calcium 9.0 02/19/20 17:15: Troponin I < 0.015 02/19/20 17:15: B-Natriuretic Peptide 27.4 02/20/20 05:18: WBC 7.8, RBC 4.50 L, Hgb 12.9 L, Hct 40.4, MCV 89.8, MCH 28.7, MCHC 31.9 L, RDW Std Deviation 42.1, RDW Coeff of [place] 12.7, Plt Count 288, MPV 9.4, Immature Gran % (Auto) 0.900, Neut % (Auto) 59.9, Lymph % (Auto) 23.2, [place] % (Auto) 11.8 H, Eos % (Auto) 3.8, Baso % (Auto) 0.4, Absolute Neuts (auto) 4.7, Absolute Lymphs (auto) 1.81, Nucleated RBC % 0 02/20/20 05:18: Sodium 138, Potassium 3.6, Chloride 106, Carbon Dioxide 27.0, Anion Gap 5, BUN 11, Creatinine 1.09, Estim Creat Clear Calc 83.48, Est GFR (MDRD) Af Amer 89, Est GFR (MDRD) Non-Af 74, BUN/Creatinine Ratio 10.1, Glucose 122 H, Calcium 8.4 L, Total Bilirubin 1.10 H, AST 29, ALT 49, Alkaline Phosphatase 87, Total Protein 7.0, Albumin 3.3, Globulin 3.7, Albumin/Globulin Ratio 0.9 OBSV E&M: [id number] Observation care discharge
== END 2020-02-20 10:03 | disposition home or self-care (01) ==
LOC: ED 17:15 → PCU 02-20 06:34
PROVIDERS: Admitting Provider Family Medicine; Emergency Provider Emergency Medicine; PCP Student in an Organized Health Care Education/Training Program; Visit Provider Internal Medicine
DX: I82.443 Acute embolism and thrombosis of tibial vein, bilateral (principal); I82.463 Acute embolism and thrombosis of calf muscular vein, bilateral; Z87.01 Personal history of pneumonia (recurrent); J45.40 Moderate persistent asthma, uncomplicated; I26.93 Single subsegmental thrombotic pulmonary embolism without acute cor pulmonale; Z86.19 Personal history of other infectious and parasitic diseases; J32.2 Chronic ethmoidal sinusitis; J32.3 Chronic sphenoidal sinusitis; R06.02 Shortness of breath; Z77.090 Contact with and (suspected) exposure to asbestos
CPT/HCPCS: 71275; 80048; 80053; 83880; 84484; 85025; 93005; 96372; 99218; 99284; Q9967; A4216; G0378

== ENCOUNTER → 2020-11-27 06:59 | Outpatient (CLI) | payer OTHER, SELFPAY ==
[2020-11-27 07:50] LABS: Absolute Lymphocyte Count 1.72 X10^3/uL (0.83-4.51); Absolute Neutrophil Count 3.8 X10^3/uL (2.0-7.7); Basophil# 0.07 X10^3/uL; Basophil% 1.1 % (0-1); Eosinophil# 0.23 X10^3/uL; Eosinophils% 3.5 % (0-5); Hematocrit 45.7 % (40-54); Hemoglobin 15.1 g/dL (13.0-16.5); Lymphocyte # 1.72 X10^3/ul (0.83-4.51); Lymphocyte % 26.3 % (19-41); Mean Corpuscular Hgb 30.4 pg (27.0-32.0); Mean Corpuscular Volume 92.1 fL (80-94); Mean Platelet Vol. 9.3 fl (6.2-12.0); Monocyte# 0.62 X10^3/uL; Monocyte% 9.5 % (0-10); NRBC Flagged by Analyzer 0 % (0-5); Neutrophil # 3.82 X10^3/uL (2.7-7.7); Neutrophil % 58.4 % (47-70); Platelet Count 272 K/mm3 (150-450); RBC Distribution Width CV 13.2 % (11.6-14.6); RBC Distribution Width SD 44.5 fl (35.1-43.9); Red Blood Count 4.96 M/mm3 (4.6-6.2); White Blood Count 6.5 K/mm3 (4.4-11.0)
[2020-11-27 08:02] LABS: D-Dimer Quantitative (DVT/PE) 0.41 FEU/ug/m (0.27-0.49)
[2020-11-27 08:30] LABS: ALB/GLOB Ratio 1.1 RATIO (0.9-2.4); AST(SGOT) 31 U/L (15-37); Alanine Aminotransfer ALT/SGPT 36 U/L (16-61); Albumin, Serum 3.7 g/dL (3.2-5.0); Alkaline Phosphatase 51 U/L (45-117); Anion Gap 2 (5-15); BUN 13 mg/dL (7-18); BUN/Creat Ratio 12.5 RATIO (10-20); CRP < 2.90 mg/L (0.0-3.0); Calcium,Total 8.6 mg/dL (8.5-10.1); Chloride 108 mmol/L (98-107); Cholesterol 173 mg/dL (200); Creatinine, Serum 1.04 mg/dL (0.70-1.30); EST Glomerular Filtration Rate 78 mL/min (>60); Est Glom Filt Rate - Afr Amer 94 mL/min (>60); Globulin 3.5 g/dL (2.2-4.2); Glucose 105 mg/dL (74-106); High Density Lipoprotein 48 mg/dL; PSA,Total - Annual Screen 1.95 ng/mL (0.00-4.00); Protein, Total 7.2 g/dL (6.4-8.2); Sodium Level 139 mmol/L (136-145); Triglycerides 139 mg/dL; Very Low Density Lipoprotein 28 mg/dL (5-40)
[2020-11-27 09:01] LABS: Hemoglobin A1c 5.6 % (3.8-5.6)
== END ==
PROVIDERS: PCP Student in an Organized Health Care Education/Training Program; Referring Provider Student in an Organized Health Care Education/Training Program; Visit Provider Student in an Organized Health Care Education/Training Program
DX: Z00.00 Encounter for general adult medical examination without abnormal findings (principal); R06.02 Shortness of breath; Z86.711 Personal history of pulmonary embolism; Z86.16 Personal history of COVID-19; Z12.5 Encounter for screening for malignant neoplasm of prostate
CPT/HCPCS: 36415; 80053; 80061; 83036; 84153; 85025; 85379; 86140; G0103

== ENCOUNTER 2021-10-10 04:14 | Emergency (ER) | payer OTHER, SELFPAY ==
[2021-10-10 04:16] VITALS: BP 127/83; PULSE 95; RESP 16; TEMP 39.4; O2SAT 93; BMI 32.9
--- NOTE | 2021-10-10 04:43 | CT_ITS ---
EXAM: CT ABDOMEN AND PELVIS WITH INTRAVENOUS CONTRAST CLINICAL INDICATION: LLQ pain TECHNIQUE: Helically acquired images were obtained of the abdomen and pelvis with intravenous contrast. This CT exam was performed using one or more of the following dose reduction techniques: automated exposure control, adjustment of the mA and/or kV according to patient size, and/or use of iterative reconstruction technique. This report was created using [employer] report generation technology. CONTRAST: IV 100mL Isovue-300 COMPARISON: None. FINDINGS: LOWER THORAX: Unremarkable. Lung bases are clear. No cardiomegaly. No significant pericardial effusion. ABDOMEN: LIVER: Unremarkable. Homogeneous. No focal mass. GALLBLADDER AND BILE DUCTS: Unremarkable. No calcified gallstones. No gallbladder distention or wall edema. No intra- or extrahepatic biliary ductal dilation. PANCREAS: Unremarkable. No focal cystic or solid mass. SPLEEN: Unremarkable. Normal size without focal cystic or solid mass. ADRENALS: Unremarkable. No nodules. KIDNEYS AND URETERS: Benign peripelvic left renal cysts, no follow-up required. No hydronephrosis. STOMACH AND BOWEL: Wall thickening and inflammation of the proximal half of the colon. No stomach or bowel distention. PELVIS: APPENDIX: The appendix is normal. BLADDER: Unremarkable. REPRODUCTIVE: Unremarkable as visualized. No mass. ABDOMEN and PELVIS: INTRAPERITONEAL SPACE: Small amount of free fluid in the pelvis. No free air. BONES/JOINTS: Unremarkable. No suspicious lytic or blastic abnormality. SOFT TISSUES: Unremarkable. No discrete abdominal or pelvic wall hernia. VASCULATURE: Unremarkable. Abdominal aorta is non-dilated. LYMPH NODES: Unremarkable. No enlarged lymph nodes. CT/Abdomen/Pelvis W IV Cont ONLY IMPRESSION: Wall thickening and inflammation of the proximal half of the colon. This may indicate an infectious or inflammatory colitis. Follow-up is recommended to ensure resolution. Electronically Signed: Blanco Alfaro MD at 6:08 EDT ,
--- NOTE | 2021-10-10 04:54 | EDS_ITS ---
HPI History of Present Illness Chief Complaint: Abd Pain Narrative Narrative: Patient is a 61-year-old male with past medical history of previous PE and DVT as well as asthma. He states that evening he began to not feel well with generalized muscle aches and fatigue. He states symptoms began to worsen on Tuesday and he took a home COVID test which was negative. He states following this he developed increased nausea with decreased appetite and now fever up to 103. With concern there is an infectious process present he presents for evaluation [facility] Medical History Acute bronchitis, unspecified Acute maxillary sinusitis, unspecified Asthma, moderate persistent History of asbestos exposure Kidney stones Shortness of breath Subcutaneous mass Home Medications ciprofloxacin HCl 750 mg tablet 750 mg PO BID 7 days #14 tabs 10/10/21 [Rx Last Taken Unknown] metronidazole 500 mg tablet 500 mg PO TID 7 days #21 tabs 10/10/21 [Rx Last Taken Unknown] ondansetron 4 mg disintegrating tablet 4 mg PO TID PRN nausea and vomiting #21 tabs 10/10/21 [Rx Last Taken Unknown] oxycodone-acetaminophen 5 mg-325 mg tablet (Endocet) 1 tab PO Q6H PRN pain 3 days #12 tabs 10/10/21 [Rx Last Taken Unknown] Allergy/AdvReac Type Severity Reaction Status Date / Time morphine AdvReac migraine Verified 10/10/21 04:18 Family History Father Diabetes Cancer prostate Sister Diabetes Sister Diabetes Surgical History (Updated 10/10/21 @ 04:19 by Smita Hurley) History of repair of right rotator cuff Sinus reconstruction Social History (Updated 08/08/19 @ 17:[address] Luke Mahoney MD) Smoking Status: Never smoker second hand exposure: No alcohol intake: never substance use type: does not use caffeine: Yes Type: coffee Number of servings: 4 what type of physical activity do you participate in: none ROS ROS ED Constitutional Constitutional ED: Reports chills and fever(s) ENT ENT ED: Denies sore throat Cardiovascular Cardiovascular: Denies chest pain Respiratory/Chest Respiratory/Chest: Denies cough or dyspnea Gastrointestinal Gastrointestinal: Reports abdominal pain and nausea; Denies diarrhea or vomiting Genitourinary Genitourinary ED: Denies dysuria Musculoskeletal Musculoskeletal: Reports myalgias Integumentary Denies rash Neurologic Neurologic: Reports headache(s) Hematologic/Lymphatic Hematologic/Lymphatic: Denies easy bleeding or easy bruising EXAM Physical Exam Const Vital Signs: 10/10/21 04:16 10/10/21 05:16 10/10/21 06:04 Temperature 103 F H 101.3 F H 99.9 F H Temperature Source Oral Oral Oral Pulse Rate 95 92 86 Respiratory Rate 16 18 16 Blood Pressure 127/83 H 126/74 H 125/66 H Blood Pressure Mean 97 91 85 Pulse Ox 93 96 94 Oxygen Delivery Method Room Air Nasal Cannula Room Air Oxygen Flow Rate (L/min) 2 Positive well nourished and well developed General Appearance ED: well developed HEENT Reports dry mucous membranes HEENT Narrative: No signs of secondary infection in the posterior pharynx Mouth ED: Yes dry mucous membranes Mouth: dry mucous membranes Eyes PERRL and EOMs intact bilaterally Neck supple Resp normal respiratory effort and clear to auscultation bilaterally Cardio regular rhythm Rate: tachycardic and other Other Details: Radial pulses are plus 2 out of 4 bilaterally are equal and symmetric GI non-distended GI Narrative: Abdomen is soft and nondistended with hyperactive bowel sounds. There is pain on palpation with slight voluntary guarding in the left lower quadrant. No rigidity noted. No pulsatile mass or fluid wave Auscultation: hyperactive bowel sounds Palpation: soft Extremity normal to inspection Neuro oriented x3 and CN's II-XII intact bilaterally Sensorium / Orientation: alert Psych mental status grossly normal Skin no rashes or lesions noted Skin Narrative: Skin turgor is increased MDM MDM MDM Narrative Medical decision making narrative: Presented to the ER febrile but otherwise with stable vitals. With his fever and abdominal pain there was concern for underlying intestinal infection so basic blood work and a CT scan were ordered. Labs showed elevated white count of 16.7 however his lactic acid was normal and no bandemia was reported. CT scan showed inflammation of the proximal half of his colon consistent with colitis. It does state this could be infectious versus inflammatory in nature. Based on his fever and elevated white blood cell count I do feel that this is most likely infectious and therefore patient will be treated with Cipro and Flagyl. On reevaluation he does have improvement of his abdominal pain. His vitals remained stable. Therefore at this time as his blood pressure is normal his temperature has improved with Tylenol and he does not have perforation, abscess or obstruction on the CT scan I feel we can start with outpatient antibiotics and see if this resolves his symptoms. The plan of care was discussed with the patient and he is agreeable to it. Lab Data Attestation: I reviewed the patient's lab results. Labs: Laboratory Results - last 24 hr 10/10/21 10/10/21 10/10/21 04:23 04:45 04:45 WBC 16.7 H RBC 4.83 Hgb 14.9 Hct 43.8 MCV 90.7 MCH 30.8 MCHC 34.0 RDW Std Deviation 45.3 H RDW Coeff of Maricarmen 13.4 Plt Count 208 MPV 9.8 Immature Gran % (Auto) 0.600 Neut % (Auto) 88.4 H Lymph % (Auto) 3.4 L [place] % (Auto) 7.4 Eos % (Auto) 0.0 Baso % (Auto) 0.2 Absolute Neuts (auto) 14.8 H Absolute Lymphs (auto) 0.57 L Nucleated RBC % 0 Differential Comment SCANNED Sodium 135 L Potassium 3.6 Chloride 103 Carbon Dioxide 26.0 Anion Gap 6 BUN 11 Creatinine 1.22 Estim Creat Clear Calc 72.77 Est GFR (MDRD) Af Amer 78 Est GFR (MDRD) Non-Af 64 BUN/Creatinine Ratio 9.0 L Glucose 151 H Lactic Acid 1.0 Calcium 8.5 Total Bilirubin 2.60 H Direct Bilirubin 0.72 H AST 39 H ALT 51 Alkaline Phosphatase 65 Total Protein 7.1 Albumin 3.5 Globulin 3.6 Lipase 79 Urine Color Urine Clarity Urine pH Ur Specific [place] Urine Protein Urine Glucose (UA) Urine Ketones Urine Occult Blood Urine Nitrite Urine Bilirubin Urine Urobilinogen Ur Leukocyte Esterase Urine RBC Urine WBC Ur Squamous Epith Cells Urine Bacteria Hyaline Casts Urine Mucus 10/10/21 06:00 WBC RBC Hgb Hct MCV MCH MCHC RDW Std Deviation RDW Coeff of Maricarmen Plt Count MPV Immature Gran % (Auto) Neut % (Auto) Lymph % (Auto) [place] % (Auto) Eos % (Auto) Baso % (Auto) Absolute Neuts (auto) Absolute Lymphs (auto) Nucleated RBC % Differential Comment Sodium Potassium Chloride Carbon Dioxide Anion Gap BUN Creatinine Estim Creat Clear Calc Est GFR (MDRD) Af Amer Est GFR (MDRD) Non-Af BUN/Creatinine Ratio Glucose Lactic Acid Calcium Total Bilirubin Direct Bilirubin AST ALT Alkaline Phosphatase Total Protein Albumin Globulin Lipase Urine Color Yellow Urine Clarity Clear Urine pH 5.0 Ur Specific [place] 1.020 Urine Protein 100 H Urine Glucose (UA) Normal Urine Ketones 5 H Urine Occult Blood 250 H Urine Nitrite Positive H Urine Bilirubin 1 H Urine Urobilinogen 4 H Ur Leukocyte Esterase 25 H Urine RBC 25-50 SEEN Urine WBC 0-5 SEEN Ur Squamous Epith Cells 0 SEEN Urine Bacteria 1+ Hyaline Casts 0-5 SEEN Urine Mucus 0 SEEN Radiography Diagnostic Testing: Clinical Impression(s) from Imaging Studies Abdomen/Pelvis CT 10/10/21 04:43 IMPRESSION: Wall thickening and inflammation of the proximal half of the colon. This may indicate an infectious or inflammatory colitis. Follow-up is recommended to ensure resolution. Electronically Signed: Blanco Alfaro MD at 6:08 EDT , Discharge Plan Triage Chief Complaint: Abd Pain Other Complaint: Fever ED Provider: Nico Daugherty Dx/Rx/DC Orders Clinical Impression: Acute colitis, Leukocytosis (leucocytosis), History of pulmonary embolism Instructions: ED Understanding Colitis Prescriptions: New ciprofloxacin HCl 750 mg tablet 750 mg PO BID 7 Days Qty: 14 0RF metronidazole 500 mg tablet 500 mg PO TID 7 Days Qty: 21 0RF ondansetron 4 mg tablet,disintegrating 4 mg PO TID PRN (Reason: nausea and vomiting) Qty: 21 0RF oxycodone-acetaminophen [Endocet] 5-325 mg tablet 1 tab PO Q6H PRN (Reason: pain) 3 Days Qty: 12 0RF Primary Care Provider: Jovanny Abernathy Referrals: Jovanny Abernathy DO [Primary Care Provider] - Activity Restrictions/Additional Instructions: Your CT PE scan showed inflammation of your colon consistent with colitis. Based on your fever and white count I do feel this is infectious in nature. Please take antibiotics as directed to resolve this and you may have a fever for the next few days as it takes typically 24 to 48 hours for the antibiotics to take effect. If you have any further concerns or worsening of symptoms please return to the ER for repeat evaluation Disposition Disposition: Home, Self Care
[2021-10-10] MEDS: Acetaminophen 500 MG Tablet 1000 MG PO (04:55)
[2021-10-10] MEDS: 0.9% Normal Saline 1,000 ML 999 ML IV ×2 (04:55→07:06)
[2021-10-10] MEDS: Ondansetron 4 MG/2 ML Vial IV (04:56)
[2021-10-10] MEDS: HYDROmorphone 1 MG/ML Syringe IV (04:57)
[2021-10-10 05:07] LABS: Absolute Lymphocyte Count 0.57 X10^3/uL (0.83-4.51); Absolute Neutrophil Count 14.8 X10^3/uL (2.0-7.7); Basophil# 0.03 X10^3/uL; Basophil% 0.2 % (0-1); Hematocrit 43.8 % (40-54); Hemoglobin 14.9 g/dL (13.0-16.5); Lymphocyte # 0.57 X10^3/ul (0.83-4.51); Lymphocyte % 3.4 % (19-41); Mean Corpuscular Hgb 30.8 pg (27.0-32.0); Mean Corpuscular Volume 90.7 fL (80-94); Mean Platelet Vol. 9.8 fl (6.2-12.0); Monocyte# 1.23 X10^3/uL; Monocyte% 7.4 % (0-10); NRBC Flagged by Analyzer 0 % (0-5); Neutrophil # 14.75 X10^3/uL (2.7-7.7); Neutrophil % 88.4 % (47-70); POSITIVE DIFFERENTIAL YES; Platelet Count 208 K/mm3 (150-450); RBC Distribution Width CV 13.4 % (11.6-14.6); RBC Distribution Width SD 45.3 fl (35.1-43.9); Red Blood Count 4.83 M/mm3 (4.6-6.2); White Blood Count 16.7 K/mm3 (4.4-11.0)
[2021-10-10 05:11] LABS: Differential Indicated SCAN CRITERIA MET
[2021-10-10 05:16] VITALS: BP 126/74; PULSE 92; RESP 18; TEMP 38.5; O2SAT 96
[2021-10-10 05:27] LABS: AST(SGOT) 39 U/L (15-37); Alanine Aminotransfer ALT/SGPT 51 U/L (16-61); Albumin, Serum 3.5 g/dL (3.2-5.0); Alkaline Phosphatase 65 U/L (45-117); Anion Gap 6 (5-15); BUN 11 mg/dL (7-18); Bilirubin, Direct 0.72 mg/dL (0.00-0.30); Calcium,Total 8.5 mg/dL (8.5-10.1); Chloride 103 mmol/L (98-107); Creatinine, Serum 1.22 mg/dL (0.70-1.30); EST Glomerular Filtration Rate 64 mL/min (>60); Est Glom Filt Rate - Afr Amer 78 mL/min (>60); Estimated Creatinine Clearance 72.77 ml/min; Globulin 3.6 g/dL (2.2-4.2); Glucose 151 mg/dL (74-106); Lipase 79 U/L (73-393); Potassium 3.6 mmol/L (3.5-5.1); Protein, Total 7.1 g/dL (6.4-8.2); Sodium Level 135 mmol/L (136-145)
[2021-10-10] MEDS: Ciprofloxacin 400 MG/200 ML BAG 200 MG IV (05:29)
[2021-10-10 05:49] LABS: Differential Comment SCANNED
[2021-10-10 06:02] LABS: Mucous, Urine 0 SEEN /hpf (<or=2+); Squamous Epithelial Cells - UA 0 SEEN /hpf (0-5)
[2021-10-10 06:04] VITALS: BP 125/66; PULSE 86; RESP 16; TEMP 37.7; O2SAT 94
[2021-10-10 06:04] LABS: Color, Urine Yellow (Yellow); Glucose, Dipstick Normal (Normal); Ketone-Dipstick 5 mg/dl (Negative); Leukocyte Esterase-Dipstick 25 /ul (Negative); Nitrite-Dipstick Positive (Negative); Occult Blood-Urine 250 /ul (Negative); Protein-Dipstick 100 mg/dl (Negative); Urine Clarity Clear (Clear); Urine Urobilinogen 4 mg/dl (Normal)
[2021-10-10 06:15] LABS: Urine Bilirubin Dipstick 1 mg/dL (Negative)
[2021-10-10 06:17] LABS: White Blood Cells 0-5 SEEN /hpf (0-5)
[2021-10-10 06:18] LABS: Red Blood Cells-Urine 25-50 SEEN /hpf (0-5)
[2021-10-10 06:19] LABS: Bacteria 1+ /hpf (None Seen); Hyaline Cast 0-5 SEEN /lpf (0-5)
[2021-10-10] MEDS: metroNIDAZOLE 500 MG/100 ML BAG 100 MG IV (07:03)
[2021-10-10 07:38] VITALS: BP 103/67; PULSE 71; RESP 16; TEMP 36.5; O2SAT 95
== END 2021-10-10 08:43 | disposition home or self-care (01) ==
PROVIDERS: Emergency Provider Emergency Medicine; PCP Student in an Organized Health Care Education/Training Program; Visit Provider Emergency Medicine
DX: A09 Infectious gastroenteritis and colitis, unspecified (principal); D72.829 Elevated white blood cell count, unspecified; J45.909 Unspecified asthma, uncomplicated
CPT/HCPCS: 74177; 80048; 80076; 81001; 83605; 83690; 85025; 87428; 96361; 96365; 96366; 96367; 96375; 99284; J7030; Q9967; A4216; J0744; J2405

== ENCOUNTER 2021-10-12 09:12 | Emergency (ER) | payer OTHER, SELFPAY ==
[2021-10-12 09:14] VITALS: BP 128/92; PULSE 73; RESP 17; TEMP 36; O2SAT 98; BMI 32.2
[2021-10-12 09:21] VITALS: BP 128/92; PULSE 73; RESP 17; TEMP 36; O2SAT 96
--- NOTE | 2021-10-12 09:52 | EDS_ITS ---
HPI HPI - GI History of Present Illness Chief Complaint: Abd Pain Informant: patient Abdominal Pain/Flank Pain Onset: Days (5) Context: Gradual Onset Timing: Continuous Quality: Cramping Location: Epigastric Worsened by: Food Relieved by: Nothing Nausea/Vomiting/Emesis GI Symptom: Positive for Nausea and Vomiting Quality: Negative for Blood streaks, Coffee ground or Hematemesis Diarrhea/Melena/Hematochezia GI Symptom: Positive for Diarrhea Onset: Today Stool Quality: Positive for Black Episodes: 1 Associated Symptoms Associated Symptoms: Negative for Dysuria, Frequency or Hematuria Narrative Narrative: Patient presents with abdominal pain that has been getting worse over the last 5 days. Patient states that he was seen here recently and diagnosed with colitis. Patient states he was started on antibiotics for this. Patient states his pain has not improved at all. Patient states that every time he eats he can only eat a couple ounces of food and it feels like it does not moving past his stomach. Patient admits to some nausea and vomiting. Patient denies any hematemesis or coffee-ground emesis. Patient states he did have some diarrhea today that was black. Patient states this was only one episode. Patient denies any urinary complaints. Patient states he was having a fever of up to 103.5 at home. Patient states this stopped after he started taking antibiotics. [facility] Medical History Acute bronchitis, unspecified Acute maxillary sinusitis, unspecified Asthma, moderate persistent History of asbestos exposure Kidney stones Shortness of breath Subcutaneous mass Home Medications ciprofloxacin HCl 750 mg tablet 750 mg PO BID 7 days #14 tabs 10/10/21 [Rx Last Taken Unknown] metronidazole 500 mg tablet 500 mg PO TID 7 days #21 tabs 10/10/21 [Rx Last Taken Unknown] ondansetron 4 mg disintegrating tablet 4 mg PO TID PRN nausea and vomiting #21 tabs 10/10/21 [Rx Last Taken Unknown] oxycodone-acetaminophen 5 mg-325 mg tablet (Endocet) 1 tab PO Q6H PRN pain 3 days #12 tabs 10/10/21 [Rx Last Taken Unknown] Allergy/AdvReac Type Severity Reaction Status Date / Time morphine AdvReac migraine Verified 10/12/21 09:13 Family History Father Diabetes Cancer prostate Sister Diabetes Sister Diabetes Surgical History History of repair of right rotator cuff Sinus reconstruction Social History Smoking Status: Never smoker second hand exposure: No alcohol intake: never substance use type: does not use caffeine: Yes Type: coffee Number of servings: 4 what type of physical activity do you participate in: none ROS ROS ED Constitutional Constitutional ED: Reports fever(s); Denies chills Eyes Eyes: Denies blurry vision or change in vision ENT ENT ED: Denies rhinorrhea or sore throat Cardiovascular Cardiovascular: Denies chest pain or palpitations Respiratory/Chest Respiratory/Chest: Denies cough or dyspnea Gastrointestinal Gastrointestinal: Reports abdominal pain, diarrhea, melena, nausea and vomiting Genitourinary Genitourinary ED: Denies dysuria or hematuria Musculoskeletal Musculoskeletal: Denies back pain or neck pain Integumentary Denies abscess or rash Neurologic Neurologic: Reports headache(s); Denies weakness Allergic/Immunologic Allergic/Immunologic ED: Denies mouth swelling or urticaria EXAM Physical Exam Const Vital Signs: 10/12/21 09:14 10/12/21 09:21 10/12/21 12:45 Temperature 96.8 F L 96.8 F L Temperature Source Temporal Temporal Pulse Rate 73 73 72 Respiratory Rate 17 17 18 Blood Pressure 128/92 H 128/92 H 131/88 H Blood Pressure Mean 104 104 102 Pulse Ox 98 96 97 Oxygen Delivery Method Room Air Room Air Room Air Positive well nourished and well developed General Appearance ED: well developed and NAD HEENT Reports moist mucous membranes Neck supple and no JVD Resp normal respiratory effort and clear to auscultation bilaterally Cardio regular rate, regular rhythm and no murmurs GI normal to inspection, nondistended, normoactive bowel sounds Palpation: soft and tender epigastric, LUQ and RUQ; Negative for guarding or rebound tenderness present Extremity normal to inspection General Extremety ED: Negative for edema or tenderness General Extremity: Negative for edema Neuro oriented x3, CN's II-XII intact bilaterally and no sensory deficits noted Sensorium / Orientation: alert Motor Exam: strength 5/5 throughout Psych mental status grossly normal Skin no rashes or lesions noted MDM MDM MDM Narrative Medical decision making narrative: Patient was given IV fluids. CBC was within normal limits. Comprehensive metabolic profile was within normal limits. Lipase was normal. CT scan of the abdomen pelvis was obtained due to the patient's concern for possible bowel obstruction. There is pancolitis worse in the right hemicolon. There is involvement of the terminal ileum. There has been no change from previous CT scan. This was interpreted by the radiologist and reviewed by myself. Patient and his spouse were advised of the findings. Patient is feeling somewhat better on reevaluation. Patient was instructed to continue his antibiotics as prescribed. Patient was instructed to continue with a liquid diet and advance as tolerated. Patient was instructed to follow-up with his primary care physician in 3 to 5 days. Patient was advised he may need to follow-up with a care information associate as well. Patient and spouse understood and were agreeable with the plan. All questions were answered. Lab Data Attestation: I reviewed the patient's lab results. Labs: Laboratory Results - last 24 hr 10/12/21 10/12/21 09:35 09:35 WBC 9.5 RBC 4.63 Hgb 13.8 Hct 42.0 MCV 90.7 MCH 29.8 MCHC 32.9 RDW Std Deviation 44.8 H RDW Coeff of [place] 13.4 Plt Count 235 MPV 9.8 Immature Gran % (Auto) 0.900 Neut % (Auto) 80.6 H Lymph % (Auto) 9.1 L [place] % (Auto) 8.5 Eos % (Auto) 0.3 Baso % (Auto) 0.6 Absolute Neuts (auto) 7.7 Absolute Lymphs (auto) 0.87 Nucleated RBC % 0 Sodium 137 Potassium 3.8 Chloride 104 Carbon Dioxide 27.0 Anion Gap 6 BUN 12 Creatinine 1.04 Estim Creat Clear Calc 85.36 Est GFR (MDRD) Af Amer 94 Est GFR (MDRD) Non-Af 77 BUN/Creatinine Ratio 11.5 Glucose 106 Calcium 8.2 L Total Bilirubin 1.00 AST 23 ALT 36 Alkaline Phosphatase 56 Total Protein 6.9 Albumin 3.2 Globulin 3.7 Albumin/Globulin Ratio 0.9 Lipase 80 Radiography Diagnostic Testing: Clinical Impression(s) from Imaging Studies Abdomen/Pelvis CT 10/12/21 09:56 IMPRESSION: Pancolitis worse in the right hemicolon. There is involvement of the terminal ileum. There is been essentially no change. Electronically Signed: Sachin Mello MD at 12:12 EDT , Discharge Plan Triage Chief Complaint: Abd Pain ED Provider: Christian Lundberg Dx/Rx/DC Orders Clinical Impression: Acute colitis, Abdominal pain Instructions: ED Understanding Colitis, ED Abdominal Pain Unkn Cause Male... Prescriptions: No Action ciprofloxacin HCl 750 mg tablet 750 mg PO BID 7 Days Qty: 14 0RF metronidazole 500 mg tablet 500 mg PO TID 7 Days Qty: 21 0RF ondansetron 4 mg tablet,disintegrating 4 mg PO TID PRN (Reason: nausea and vomiting) Qty: 21 0RF oxycodone-acetaminophen [Endocet] 5-325 mg tablet 1 tab PO Q6H PRN (Reason: pain) 3 Days Qty: 12 0RF Primary Care Provider: Jovanny Abernathy Referrals: Jovanny Abernathy, [Primary Care Provider] - 3-5 Days Disposition Disposition: Home, Self Care
--- NOTE | 2021-10-12 09:56 | CT_ITS ---
STUDY: CT ABDOMEN AND PELVIS WITH CONTRAST REASON FOR EXAM: Male, 61 years old. History of nausea and vomiting. Recent diagnosis of colitis. RADIATION DOSAGE (If Supplied By Facility): CTDIvol = ( 19.89 ) mGy, DLP = ( 1272.99 ) mGycm TECHNIQUE: Transaxial images were obtained from the dome of the diaphragm to the symphysis pubis with oral contrast. Oral and amp; IV Gastrografin and amp; 100mL Isovue-300 was administered. Sagittal and coronal images were reconstructed. Individualized dose optimization techniques were used for this CT. COMPARISON: Comparison is made with prior study dated 10/10/2021. FINDINGS: Stable mild degree of increased markings at the lung bases suggestive of bibasilar atelectasis. The visualized portions of the heart are within normal limits. There is decreased attenuation of the liver consistent with steatosis. Stable 5 mm cyst in the midportion of the right lobe of the liver. Normal gallbladder and extrahepatic biliary system. Normal spleen. Normal pancreas. Normal bilateral adrenal glands. Normal right kidney. Stable left parapelvic renal cysts. There is a small hiatal hernia. Inflammatory changes with thickening of the terminal ileum is seen as well. Diffuse circumferential wall thickening of the right hemicolon. This also evidence of a inflammatory change with increased thickness of the rectosigmoid colon. Small mesenteric lymph nodes are seen in the right lower quadrant. Mild degree of inflammatory changes are also seen in the left hemicolon. Crohn''s disease should be ruled out. Normal abdominal aorta. Normal inferior vena cava. Normal retroperitoneum. Normal urinary bladder. Normal abdominal wall. There are degenerative changes of the visualized lumbar spine. CT/Abdomen/Pelvis WITH Contrast IMPRESSION: Pancolitis worse in the right hemicolon. There is involvement of the terminal ileum. There is been essentially no change. Electronically Signed: Sachin Mello MD at 12:12 EDT ,
[2021-10-12 10:08] LABS: Absolute Lymphocyte Count 0.87 X10^3/uL (0.83-4.51); Absolute Neutrophil Count 7.7 X10^3/uL (2.0-7.7); Basophil# 0.06 X10^3/uL; Basophil% 0.6 % (0-1); Eosinophil# 0.03 X10^3/uL; Eosinophils% 0.3 % (0-5); Hemoglobin 13.8 g/dL (13.0-16.5); Lymphocyte # 0.87 X10^3/ul (0.83-4.51); Lymphocyte % 9.1 % (19-41); Mean Corp Hgb Conc 32.9 g/dL (32-36); Mean Corpuscular Hgb 29.8 pg (27.0-32.0); Mean Corpuscular Volume 90.7 fL (80-94); Mean Platelet Vol. 9.8 fl (6.2-12.0); Monocyte# 0.81 X10^3/uL; Monocyte% 8.5 % (0-10); NRBC Flagged by Analyzer 0 % (0-5); Neutrophil # 7.68 X10^3/uL (2.7-7.7); Neutrophil % 80.6 % (47-70); Platelet Count 235 K/mm3 (150-450); RBC Distribution Width CV 13.4 % (11.6-14.6); RBC Distribution Width SD 44.8 fl (35.1-43.9); Red Blood Count 4.63 M/mm3 (4.6-6.2); White Blood Count 9.5 K/mm3 (4.4-11.0)
[2021-10-12] MEDS: 0.9% Normal Saline 1,000 ML 1000 ML IV (10:18)
[2021-10-12] MEDS: Ondansetron 4 MG/2 ML Vial IV (10:18)
[2021-10-12 10:30] LABS: ALB/GLOB Ratio 0.9 RATIO (0.9-2.4); AST(SGOT) 23 U/L (15-37); Alanine Aminotransfer ALT/SGPT 36 U/L (16-61); Albumin, Serum 3.2 g/dL (3.2-5.0); Alkaline Phosphatase 56 U/L (45-117); Anion Gap 6 (5-15); BUN 12 mg/dL (7-18); BUN/Creat Ratio 11.5 RATIO (10-20); Calcium,Total 8.2 mg/dL (8.5-10.1); Chloride 104 mmol/L (98-107); Creatinine, Serum 1.04 mg/dL (0.70-1.30); EST Glomerular Filtration Rate 77 mL/min (>60); Est Glom Filt Rate - Afr Amer 94 mL/min (>60); Estimated Creatinine Clearance 85.36 ml/min; Globulin 3.7 g/dL (2.2-4.2); Glucose 106 mg/dL (74-106); Lipase 80 U/L (73-393); Potassium 3.8 mmol/L (3.5-5.1); Protein, Total 6.9 g/dL (6.4-8.2); Sodium Level 137 mmol/L (136-145)
[2021-10-12 12:45] VITALS: BP 131/88; PULSE 72; RESP 18; O2SAT 97
== END 2021-10-12 13:14 | disposition home or self-care (01) ==
PROVIDERS: Emergency Provider Emergency Medicine; PCP Student in an Organized Health Care Education/Training Program; Visit Provider Emergency Medicine
DX: K51.00 Ulcerative (chronic) pancolitis without complications (principal)
CPT/HCPCS: 74177; 80053; 83690; 85025; 96361; 96374; 99283; J7030; Q9967; A4216; J2405